=== PATIENT | male | born 1980 | race American Indian/Alaskan Native ===

== ENCOUNTER 2017-09-03 11:51 | Emergency (ER) | payer OTHER ==
[2017-09-03 12:00] VITALS: BP 145/90; PULSE 78; TEMP 97.8; O2SAT 99
--- NOTE | 2017-09-03 12:52 | C.PDOC ---
History Of Present Illness 36 year old male presents to the ER complaining of left-sided buttock pain since Friday. Pain worsens with movement and is described as sharp. Denies any injury or fall. He did a back workout last but denies any direct trauma and had no pain at the time. No prior history of back problems. No changes in sensation, abdominal pain, fever, bladder or bowel incontinence. PMD: non-[facility] provider Time Seen by Provider: 09/03/17 12:24 Chief Complaint (Nursing): Lower Extremity Problem/Injury History Per: Patient History/Exam Limitations: no limitations Onset/Duration Of Symptoms: Days (x3) Current Symptoms Are (Timing): Still Present Past Medical History Reviewed: Historical Data, Nursing Documentation, Vital Signs Vital Signs: Last Vital Signs Temp 97.8 F 09/03/17 11:59 Pulse 78 09/03/17 11:59 Resp 20 09/03/17 14:14 BP 145/90 09/03/17 11:59 Pulse Ox 99 09/05/17 16:33 - Medical History PMH: Asthma Surgical History: No Surg Hx Family History: States: Unknown Family Hx - Social History Hx Tobacco Use: No Hx Alcohol Use: Yes Hx Substance Use: No - Immunization History Hx Tetanus Toxoid Vaccination: Yes Hx Influenza Vaccination: No Review Of Systems Except As Marked, All Systems Reviewed And Found Negative. Constitutional: Negative for: Fever, Chills Gastrointestinal: Negative for: Nausea, Vomiting, Abdominal Pain Genitourinary: Negative for: Incontinence Musculoskeletal: Positive for: Other (left buttock pain) Neurological: Negative for: Weakness, Numbness (or tingling) Physical Exam - Physical Exam Appears: Well, Non-toxic, No Acute Distress Skin: Normal Color, Warm, Dry Head: Atraumatic, Normacephalic Eye(s): bilateral: Normal Inspection, EOMI Nose: Normal Oral Mucosa: Moist Neck: Normal ROM, Supple Chest: Symmetrical Respiratory: No Accessory Muscle Use, Other (speaking full sentences) Back: Normal Inspection, No CVA Tenderness, No Vertebral Tenderness, Other ( Left buttock and left lateral hip tenderness) Extremity: Bilateral: Atraumatic, Normal Color And Temperature, Normal ROM Neurological/Psych: Oriented x3, Normal Speech, No Other (focal deficits) ED Course And Treatment O2 Sat by Pulse Oximetry: 99 (RA) Pulse Ox Interpretation: Normal - Other Rad left hip/pelvis X-Ray: Viewed By Me, Read By Radiologist Interpretation: FINDINGS: BONES: The pelvic ring is intact. Bone alignment and mineralization are normal. There is no acute fracture or bone destruction. There is mild lateral convexity in the femoral heads. There is also calcification in the labrum. JOINTS: The hip joint spaces are preserved. The sacroiliac joints are normal. SOFT TISSUES: Normal. OTHER FINDINGS: None. IMPRESSION: No acute fracture, dislocation or bone destruction. Mild lateral convexity in the femoral heads and labral calcification, the constellation of findings could represent femoral acetabular impingement syndrome. If clinically indicated, correlation with MRI may be performed. Progress Note: Ordered x-ray of left hip and pelvis. Given 30 mg Toradol IM. On reevaluation patient is resting comfortably and reports pain is improved. Informed of x-ray results and given copy to follow up with ortho in 1-2 days. CAse discussed and XR evlauated by Dr Osuna, agreed upon plan and treatment. Reassessment Condition: Improved Disposition Counseled Patient/Family Regarding: Studies Performed, Diagnosis, Need For Followup, Rx Given - Disposition Referrals: Alexander Luu III, MD [Staff Provider] - Disposition: HOME/ ROUTINE Disposition Time: 13:59 Condition: STABLE Additional Instructions: Follow up with your primary medical doctor or clinic in 2-5 days for further evaluation. Take medications as prescribed. Return to the emergency department at any time if symptoms persist or worsen. Prescriptions: Cyclobenzaprine [Cyclobenzaprine HCl] 10 mg PO BID #20 tab Naproxen [Naprosyn] 1 tab PO BID PRN #20 tab PRN Reason: Pain Instructions: Hip Pain (DC) Forms: [facility] ([place]) - POA Present On Arrival: None - Clinical Impression Clinical Impression: Hip pain - PA / SOURCING ASSOCIATE / Resident Statement MD/DO has reviewed & agrees with the documentation as recorded. - Scribe Statement The provider has reviewed the documentation as recorded by the Scribe (Nicol Weaver) All medical record entries made by the Scribe were at my direction and personally dictated by me. I have reviewed the chart and agree that the record accurately reflects my personal performance of the history, physical exam, medical decision making, and the department course for this patient. I have also personally directed, reviewed, and agree with the discharge instructions and disposition.
--- NOTE | 2017-09-03 13:37 | RAD ---
PROCEDURE: Left Hip X-ray Radiographs. HISTORY: pain COMPARISON: None. FINDINGS: BONES: The pelvic ring is intact. Bone alignment and mineralization are normal. There is no acute fracture or bone destruction. There is mild lateral convexity in the femoral heads. There is also calcification in the labrum. JOINTS: The hip joint spaces are preserved. The sacroiliac joints are normal. SOFT TISSUES: Normal. OTHER FINDINGS: None. IMPRESSION: No acute fracture, dislocation or bone destruction. Mild lateral convexity in the femoral heads and labral calcification, the constellation of findings could represent femoral acetabular impingement syndrome. If clinically indicated, correlation with MRI may be performed.
[2017-09-03 14:14] VITALS: RESP 20
== END 2017-09-03 14:14 | disposition home or self-care (01) ==
LOC: C.ER 11:51
DX: M25.552 Pain in left hip (principal)
CPT/HCPCS: 73502; 96372; 99284; J1885